=== PATIENT | female | born 1940 | race Caucasian/White ===

== ENCOUNTER 2017-06-21 15:43 | Observation (INO) | payer MEDICARE, OTHER ==
[~2017-06-21] VITALS: Ht 167.6 cm; Wt 72.0 kg
[~2017-06-21 15:43] MED LIST: CARB100C17 PO; CARV12.52 PO; COZA50TA PO; HYDRA25 PO; LEVO.025 PO; MECL25 PO; PHEN100 PO; PRAV40TA PO; TOLT4 PO; VITA400C70 PO
[2017-06-21] MEDS ORDERED: GADODIAMIDE PF 287 MG/ML 20 ML VIAL (for RAD MRI) IVCONTRAST ONE (15:44)
[2017-06-21 15:45] VITALS: BP 245/119; PULSE 73; RESP 16; TEMP 98; O2SAT 99
--- NOTE | 2017-06-21 16:47 | PD ---
HPI Chief Complaint: Neuro Symptoms/ Deficits Time Seen by Provider: 16:20 Travel History International Travel<30 days: No Contact w/Intl Traveler<30days: No Traveled to known affect area: No History of Present Illness HPI 77 years old female complains of unsteady gait. Patient states that the symptoms started 3 days ago. Patient states that the symptoms got worse last night and even worse this morning. Patient states that she had nausea this morning with the unsteady gait. Patient denies any headache. Patient denies any visual change. Patient denies any chest pain or shortness of breath. Patient denies abdominal pain. Patient denies any focal weakness or numbness of extremity. Patient denies any recent injury. Patient has been eating well. Patient is on medication for hypertension and hyperlipidemia. Patient is unsure why she is on the medications. Patient has history hypothyroidism. Patient also has history of trigeminal neuralgia and taking carbamazepine and phenytoin. Patient was seen by personal physician today and referred the ED for evaluation. PFSH Past Medical History Arthritis: Yes Anxiety: No Depression: No Cancer: No Cardiovascular Problems: Yes (HTN) High Cholesterol: Yes Diabetes: No Diminished Hearing: No Genitourinary: No Hypertension: Yes Implanted Vascular Access Dvce: Yes Musculoskeletal: Yes Neurologic: Yes (trigeminal neuralgia) Psychiatric: No Reproductive: No Respiratory: No Immunizations Current: Yes Thyroid Disease: Yes (graves disease -- hyperthyroidism ) ?: Not Menopausal: Yes Past Surgical History Abdominal Surgery: Yes (cyst removed from abd area) Body Medical Devices: mesh in cranium and and caps on teeth Genitourinary Surgery: Yes (BLADDER TACKING) Hysterectomy: Yes Neurologic Surgery: Yes (CRANIAL DECOMPRESSION FOR TRIGEMINAL NEURALGIA) Tonsillectomy: Yes Tympanostomy Tube: Yes Other Surgery: Yes (PINS PLACED May, RT FOOT 2ND,3RD DIGIT- hammer toes) Family History Family Hypercholesterolemia: Yes Social History Alcohol Use: No Tobacco Use: No Substance Use: No Allergies-Medications (Allergen,Severity, Reaction): Coded Allergies: amlodipine (Verified Allergy, Severe, 06/21/17) CAUSED NUMB ARM/HAND AND HTN X SEV DAYS. (SAID HAD AN OK) penicillin G (Verified Allergy, Mild, 06/21/17) Uncoded Allergies: GENERAL ANESTHESIA (Allergy, Mild, 04/04/15) . NARCOTCS (Adverse Reaction, Intermediate, severe nausea, 04/04/15) Reported Meds & Prescriptions Reported Meds & Active Scripts Active Reported Detrol LA (Tolterodine Tartrate) 4 Mg Cap 4 Mg PO DAILY Levothyroxine (Levothyroxine Sodium) 112 Mcg Tab 112 Mcg PO DAILY [carbatrol sr ] Pravastatin 40 Mg Tab 40 Mg PO DAILY Carvedilol 6.25 Mg Tab 6.25 Mg PO BID Losartan (Losartan Potassium) 50 Mg Tab 50 Mg PO DAILY Review of Systems General / Constitutional: No: Fever Eyes: No: Visual changes HENT: Positive: Lightheadedness, No: Headaches Cardiovascular: No: Chest Pain or Discomfort Respiratory: No: Shortness of Breath Gastrointestinal: No: Abdominal Pain Genitourinary: No: Dysuria Musculoskeletal: No: Pain Skin: No Rash Neurologic: No: Weakness Psychiatric: No: Depression Endocrine: No: Polydipsia Hematologic/Lymphatic: No: Easy Bruising Physical Exam Narrative GENERAL: Well-nourished, well-developed patient. SKIN: Focused skin assessment warm/dry. HEAD: Normocephalic. EYES: No scleral icterus. No injection or drainage. Pupils 2 mm equal reactive. NECK: Supple, trachea midline. No JVD or lymphadenopathy. CARDIOVASCULAR: Regular rate and rhythm without murmurs, gallops, or rubs. RESPIRATORY: Breath sounds equal bilaterally. No accessory muscle use. GASTROINTESTINAL: Abdomen soft, non-tender, nondistended. MUSCULOSKELETAL: No cyanosis, or edema. BACK: Nontender without obvious deformity. No CVA tenderness. Neurologic exam: Patient's awake and alert oriented 3. No obvious focal neurological deficit. Data Data Last Documented VS Vital Signs Date Time Temp Pulse Resp B/P (MAP) Pulse Ox O2 Delivery O2 Flow Rate FiO2 06/21/17 15:45 98.0 73 16 245/119 (161) 99 Orders Orders Electrocardiogram (06/21/17 16:31) Complete Blood Count With Diff (06/21/17 16:31) Comprehensive Metabolic Panel (06/21/17 16:31) Prothrombin Time / Inr (Pt) (06/21/17 16:31) Act Partial Throm Time (Ptt) (06/21/17 16:31) Urinalysis - C+S If Indicated (06/21/17 16:31) Thyroid Stimulating Hormone (06/21/17 16:31) Chest, Single Ap (06/21/17 16:31) Iv Access Insert/Monitor (06/21/17 16:31) Ecg Monitoring (06/21/17 16:31) Oximetry (06/21/17 16:31) Mri Brain W/O Contrast (06/21/17 16:31) Mra Brain W/O Contrast (Cow) (06/21/17 16:31) Mra Carotids W Contrast (06/21/17 16:31) Phenytoin (Dilantin) (06/21/17 16:43) Labs Laboratory Tests Test 06/21/17 16:30 White Blood Count 5.4 TH/MM3 Red Blood Count 4.30 MIL/MM3 Hemoglobin 13.0 GM/DL Hematocrit 38.2 % Mean Corpuscular Volume 88.9 FL Mean Corpuscular Hemoglobin 30.3 PG Mean Corpuscular Hemoglobin Concent 34.1 % Red Cell Distribution Width 13.5 % Platelet Count 240 TH/MM3 Mean Platelet Volume 6.4 FL Neutrophils (%) (Auto) 71.4 % Lymphocytes (%) (Auto) 16.4 % Monocytes (%) (Auto) 10.0 % Eosinophils (%) (Auto) 1.7 % Basophils (%) (Auto) 0.5 % Neutrophils # (Auto) 3.8 TH/MM3 Lymphocytes # (Auto) 0.9 TH/MM3 Monocytes # (Auto) 0.5 TH/MM3 Eosinophils # (Auto) 0.1 TH/MM3 Basophils # (Auto) 0.0 TH/MM3 CBC Comment DIFF FINAL Differential Comment Prothrombin Time 10.5 SEC Prothromb Time International Ratio 1.0 RATIO Activated Partial Thromboplast Time 26.1 SEC Blood Urea Nitrogen 10 MG/DL Creatinine 0.51 MG/DL Random Glucose 127 MG/DL Total Protein 6.7 GM/DL Albumin 3.6 GM/DL Calcium Level 8.8 MG/DL Alkaline Phosphatase 119 U/L Aspartate Amino Transf (AST/SGOT) 14 U/L Alanine Aminotransferase (ALT/SGPT) 20 U/L Total Bilirubin 0.3 MG/DL Sodium Level 123 MEQ/L Potassium Level 3.9 MEQ/L Chloride Level 89 MEQ/L Carbon Dioxide Level 25.9 MEQ/L Anion Gap 8 MEQ/L Estimat Glomerular Filtration Rate 117 ML/MIN Thyroid Stimulating Hormone 3rd Gen 2.250 uIU/ML MDM Medical Decision Making Medical Screen Exam Complete: Yes Emergency Medical Condition: Yes Interpretation(s) Last Impressions Chest X-Ray 06/21/17 1631 Signed Impressions: Service Date/Time: May 16:39 - CONCLUSION: 1. Mild cardiomegaly. Stable compared to prior dated 11/28/15. Jarrod Perez MD 1817 p.m. CBC within normal limit. Sodium 123. Differential Diagnosis Differential diagnosis including TIA, CVA, vertigo, electrolyte imbalance, medication side effect. Narrative Course 77 years old female with unsteady gait. Rudy Dutton MD Jun 21, 2017 16:47
[2017-06-21 16:55] LABS: AUTOMATED NEUTROPHIL # 3.8 TH/MM3 (1.8-7.7); BASOPHIL % 0.5 % (0.0-2.0); EOSINOPHIL # 0.1 TH/MM3 (0-0.4); EOSINOPHIL % 1.7 % (0.0-4.0); HEMATOCRIT 38.2 % (35.0-46.0); HEMO FLAGS DIFF FINAL; LYMPH % 16.4 % (9.0-44.0); LYMPHOCYTE # 0.9 TH/MM3 (1.0-4.8); MEAN CELL VOLUME 88.9 FL (80.0-100.0); MEAN CORPUSCULAR HEMOGLOBIN 30.3 PG (27.0-34.0); MEAN CORPUSCULAR HGB CONC 34.1 % (32.0-36.0); NEUT % 71.4 % (16.0-70.0); PLATELET COUNT 240 TH/MM3 (150-450); RED CELL DISTRIBUTION WIDTH 13.5 % (11.6-17.2); WHITE BLOOD COUNT 5.4 TH/MM3 (4.0-11.0)
--- NOTE | 2017-06-21 16:59 | RADRPT ---
EXAM DATE/TIME: 06/21/2017 16:39 [facility] COMPARISON: CHEST SINGLE AP, November 28, 2015, 9:46. SPINE CERVICAL LTD (AP&LAT), November 28, 2015, 9:49. INDICATIONS : Shortness of breath and weakness. MEDICAL HISTORY : Hypercholesterolemia. Hypertension SURGICAL HISTORY : None. ENCOUNTER: Initial ACUITY: 1 day PAIN SCORE: 0/10 LOCATION: Bilateral chest FINDINGS: The heart is mildly enlarged. The lungs are clear. Mediastinal contours within normal limits. The oss eous structures are intact. CONCLUSION: 1. Mild cardiomegaly. Stable compared to prior dated 11/28/15. Jarrod Perez MD on June 21, 2017 at 16:57 Board Certified Radiologist. This report was verified electronically.
[2017-06-21] MEDS ORDERED: DETR4CAP PO (17:05)
[2017-06-21] MEDS ORDERED: LEVO112T2 PO (17:05)
[2017-06-21] MEDS ORDERED: PRAV40TA2 PO (17:05)
[2017-06-21] MEDS ORDERED: CARBATROL (17:05)
[2017-06-21] MEDS ORDERED: CARV6.252 PO (17:05)
[2017-06-21] MEDS ORDERED: LOSA50TA PO (17:05)
[2017-06-21 17:12] LABS: APTT (PATIENT) 26.1 SEC (24.3-30.1); PROTHROMBIN TIME - PATIENT 10.5 SEC (9.8-11.6)
[2017-06-21 17:21] LABS: ALKALINE PHOSPHATASE 119 U/L (45-117); ALT (GPT) 20 U/L (10-53); ANION GAP 8 MEQ/L (5-15); AST (GOT) 14 U/L (15-37); BICARBONATE 25.9 MEQ/L (21.0-32.0); BLOOD UREA NITROGEN 10 MG/DL (7-18); CHLORIDE 89 MEQ/L (98-107); GLOMERULAR FILTRATION RATE 117 ML/MIN (>89); POTASSIUM 3.9 MEQ/L (3.5-5.1); TOTAL BILIRUBIN ADULT 0.3 MG/DL (0.2-1.0)
[2017-06-21 17:23] LABS: SODIUM (NA) 123 MEQ/L (136-145)
[2017-06-21] MEDS ORDERED: SODIUM CHLOR 0.9% 1000 ML INJ 1,000 ML IV SCH (18:30)
--- NOTE | 2017-06-21 19:05 | RADRPT ---
EXAM DATE/TIME: 06/21/2017 18:25 [facility] COMPARISON: MRI BRAIN W/O CONTRAST, June 21, 2017, 18:25. INDICATIONS : CVA. MEDICAL HISTORY : Hypertension. SURGICAL HISTORY : Hysterectomy. Cranial decompression and lumpectomy. ENCOUNTER: Initial ACUITY: 1 day PAIN SCORE: 0/10 LOCATION: Head. Please note a normal MRA of the brain does not entirely exclude the possibility of a small aneurysm, nor the possibility of distal intracranial vessel disease. TECHNIQUE: 3D time of flight MRA was performed. Source images, multiplanar STS MIP, and 3D volume MIP reconstru ctions were reviewed. FINDINGS: There is excellent visualization of the major intracranial arteries out to the second-order branch ve ssels. There is no evidence for aneurysm, vessel truncation or stenosis, and no evidence for vascula r malformation. CONCLUSION: Normal examination. Timothy Grady MD on June 21, 2017 at 19:02 Board Certified Radiologist. This report was verified electronically.
--- NOTE | 2017-06-21 19:06 | RADRPT ---
EXAM DATE/TIME: 06/21/2017 18:25 [facility] COMPARISON: No previous studies available for comparison. INDICATIONS : CVA. Dizziness. MEDICAL HISTORY : Hypertension. SURGICAL HISTORY : Hysterectomy. Lumpectomy and cranial decompression. ENCOUNTER: Initial ACUITY: 1 day PAIN SCORE: 0/10 LOCATION: Head. TECHNIQUE: Multiplanar, multisequence MRI of the brain was performed without contrast. FINDINGS: CEREBRUM: The ventricles are normal for age. No evidence of midline shift, mass lesion, hemorrhage or acute in farction. No extraaxial fluid collections are seen. The pituitary gland and suprasellar cistern are normal in configuration. WHITE MATTER: No significant signal abnormalities are seen in the white matter. POSTERIOR FOSSA: The cerebellum and brainstem are intact. The 4th ventricle is midline. The cerebellopontine angle is unremarkable. The cerebellar tonsils are normal in position. DIFFUSION IMAGING: No focal areas of restricted diffusion are seen. No evidence of acute infarction. EXTRACRANIAL: The visualized portions of the orbits and paranasal sinuses are unremarkable. CONCLUSION: Normal examination. Timothy Grady MD on June 21, 2017 at 19:04 Board Certified Radiologist. This report was verified electronically.
--- NOTE | 2017-06-21 19:10 | RADRPT ---
EXAM DATE/TIME: 06/21/2017 18:25 [facility] COMPARISON: No previous studies available for comparison. INDICATIONS : Stroke. Unsteady gait. CONTRAST: 20 cc Omniscan (gadodiamide) IV MEDICAL HISTORY : Hypertension. SURGICAL HISTORY : Hysterectomy. Lumpectomy and cranial decompression. ENCOUNTER: Initial ACUITY: 1 day PAIN SCORE: 0/10 LOCATION: Head. Percent stenosis is calculated using the diameter of the stenotic region over the diameter of the nor mal distal internal carotid artery. TECHNIQUE: Bolus infused MRA of the extracranial circulation was performed using a neurovascular coil. Post pro cessing was performed including rotating subvolume maximum intensity projections of each carotid mary ry, rotating full volume maximum intensity projections of both carotid arteries, sagittal and coronal sliding thin slab reformations of each carotid artery, and left oblique sliding thin slab reformatio n through the aortic arch to include the origin of the arch branch vessels. FINDINGS: AORTIC ARCH: There is a three vessel origin of the great vessels from the aorta. No evidence of ostial narrowing. RIGHT CAROTID: The common carotid artery is intact. The carotid bulb has a normal configuration without ulceration or narrowing. The internal carotid artery lumen is smooth without stenosis. The external carotid ar bobbi is intact. LEFT CAROTID: The common carotid artery is intact. The carotid bulb has a normal configuration without ulceration or narrowing. The internal carotid artery lumen is smooth without stenosis. The external carotid ar bobbi is intact. VERTEBRALS: The vertebral arteries have a symmetric diameter. No stenotic lesions are seen. CONCLUSION: Normal examination. Timothy Grady MD on June 21, 2017 at 19:07 Board Certified Radiologist. This report was verified electronically.
[2017-06-21 19:26] VITALS: BP 190/96; PULSE 73; RESP 19; O2SAT 98
[2017-06-21 19:55] LABS: BLOOD, URINE NEG (NEG); COMMENT (UR) CULT NOT INDICATED; CULTURE IF INDICATED CULT NOT INDICATED; GLUCOSE,URINE NEG (NEG); KETONE, URINE NEG (NEG); MUCUS URINE FEW /lpf (OCC); NITRITE,URINE NEG (NEG); URINE COLOR YELLOW (YELLW/STRAW)
--- NOTE | 2017-06-21 20:06 | PD ---
Physical Exam Date Seen by Provider: Jun 21, 2017 Time Seen by Provider: 19:53 Narrative 77-year-old female came to the emergency room with history of dizziness and broadbased gait. Patient was seen by the previous ER physician. Please refer to his history and physical for further details. The sign out to me was to follow-up on the MRI MRA and phenytoin level. The test results of back and the MRI of the brain, MRA of the brain and neck are within normal limits. Dilantin level is below the therapeutic range. Sodium is low at 123. I went to talk to the patient and her . Patient is awake and answering questions appropriately. She told me that she has a long-standing history of trigeminal neurology and is on very high dose of carbamazepine for that. Side effect of the carbamazepine is hyponatremia and she has been battling with it for a while. Her neurologist is from [place] and his Dr. Castellano. However these ataxia/broad-based gait symptoms are something new that she had not had in the past. Hence her visit to the emergency room. Given this I think it's important that patient gets admitted so that she can be seen by our neurologist. I put a call out for our neurology on-call. Awaiting for him to call back as well as the admitting physician. Patient is aware of this plan and is okay with it. Data Data Last Documented VS Orders Orders Electrocardiogram (06/21/17 16:31) Complete Blood Count With Diff (06/21/17 16:31) Comprehensive Metabolic Panel (06/21/17 16:31) Prothrombin Time / Inr (Pt) (06/21/17 16:31) Act Partial Throm Time (Ptt) (06/21/17 16:31) Urinalysis - C+S If Indicated (06/21/17 16:31) Thyroid Stimulating Hormone (06/21/17 16:31) Chest, Single Ap (06/21/17 16:31) Iv Access Insert/Monitor (06/21/17 16:31) Ecg Monitoring (06/21/17 16:31) Oximetry (06/21/17 16:31) Mri Brain W/O Contrast (06/21/17 16:31) Mra Brain W/O Contrast (Cow) (06/21/17 16:31) Mra Carotids W Contrast (06/21/17 16:31) Phenytoin (Dilantin) (06/21/17 16:43) Sodium Chlor 0.9% 1000 Ml Inj (Ns 1000 M (06/21/17 18:30) Gadodiamide Pf Inj (Omniscan Pf Inj) (06/21/17 15:44) Carbamazepine (Tegretol) (06/21/17 20:09) Admit Order (Ed Use Only) (06/21/17 20:24) Labs Laboratory Tests Test 06/21/17 16:30 06/21/17 19:30 White Blood Count 5.4 TH/MM3 Red Blood Count 4.30 MIL/MM3 Hemoglobin 13.0 GM/DL Hematocrit 38.2 % Mean Corpuscular Volume 88.9 FL Mean Corpuscular Hemoglobin 30.3 PG Mean Corpuscular Hemoglobin Concent 34.1 % Red Cell Distribution Width 13.5 % Platelet Count 240 TH/MM3 Mean Platelet Volume 6.4 FL Neutrophils (%) (Auto) 71.4 % Lymphocytes (%) (Auto) 16.4 % Monocytes (%) (Auto) 10.0 % Eosinophils (%) (Auto) 1.7 % Basophils (%) (Auto) 0.5 % Neutrophils # (Auto) 3.8 TH/MM3 Lymphocytes # (Auto) 0.9 TH/MM3 Monocytes # (Auto) 0.5 TH/MM3 Eosinophils # (Auto) 0.1 TH/MM3 Basophils # (Auto) 0.0 TH/MM3 CBC Comment DIFF FINAL Differential Comment Prothrombin Time 10.5 SEC Prothromb Time International Ratio 1.0 RATIO Activated Partial Thromboplast Time 26.1 SEC Blood Urea Nitrogen 10 MG/DL Creatinine 0.51 MG/DL Random Glucose 127 MG/DL Total Protein 6.7 GM/DL Albumin 3.6 GM/DL Calcium Level 8.8 MG/DL Alkaline Phosphatase 119 U/L Aspartate Amino Transf (AST/SGOT) 14 U/L Alanine Aminotransferase (ALT/SGPT) 20 U/L Total Bilirubin 0.3 MG/DL Sodium Level 123 MEQ/L Potassium Level 3.9 MEQ/L Chloride Level 89 MEQ/L Carbon Dioxide Level 25.9 MEQ/L Anion Gap 8 MEQ/L Estimat Glomerular Filtration Rate 117 ML/MIN Thyroid Stimulating Hormone 3rd Gen 2.250 uIU/ML Phenytoin (Dilantin) Level 3.6 MCG/ML Carbamazepine (Tegretol) Level 13.6 MCG/ML Urine Color YELLOW Urine Turbidity CLOUDY Urine pH 7.0 Urine Specific [place] 1.020 Urine Protein NEG mg/dL Urine Glucose (UA) NEG mg/dL Urine Ketones NEG mg/dL Urine Occult Blood NEG Urine Nitrite NEG Urine Bilirubin NEG Urine Urobilinogen LESS THAN 2.0 MG/DL Urine Leukocyte Esterase SMALL Urine RBC 3 /hpf Urine WBC 1 /hpf Urine Amorphous Sediment RARE Urine Mucus FEW /lpf Microscopic Urinalysis Comment CULT NOT INDICATED MDM Supervised Visit with [facility]: No Interpretation(s) Twelve-lead EKG was reviewed by me. Normal sinus rhythm, normal axis, nonspecific ST-T wave changes, first-degree AV block. Heart rate of 70 bpm. Narrative Course 8:25 PM I discussed the case with Dr. Leong. He was concerned about Tegretol toxicity. The Tegretol level was never ordered which has been ordered at this point. As per him that could certainly explain the symptoms and the hyponatremia. He agreed that patient should be admitted. If the level is high her carbamazepine needs to be held before the level comes back to words normal. I've let the hospitalist know about this. Physician Communication Physician Communication Dr. Leong Diagnosis Primary Impression: Ataxia Additional Impressions: Broad-based gait Hyponatremia Admitting Information Admitting Physician Requests: Observation Scripts Carvedilol (Carvedilol) 6.25 Mg Tab 6.26 MG PO BID for Blood Pressure Management, #60 TAB 0 Refills Prov: Lulú Mercado MD 06/23/17 Carbamazepine ER 12 HR (Carbatrol ER 12 HR) 200 Mg Cap 200 MG PO Q12HR for trigeminal neuralgia, #60 CAP 0 Refills Prov: Lulú Mercado MD 06/22/17 Nydia Moore MD Jun 21, 2017 20:06
[2017-06-21] MEDS ORDERED: DILA100C PO (20:18)
[2017-06-21] MEDS ORDERED: ONDANSETRON HCL 4 MG/2 ML VIAL IVP PRN (20:30)
[2017-06-21] MEDS ORDERED: BISACODYL 10 MG SUPP RECTAL PRN (20:30)
[2017-06-21] MEDS ORDERED: MAGNESIUM HYDROXIDE SUSP 30 ML CUP PO PRN (20:30)
[2017-06-21] MEDS ORDERED: LACTULOSE SYRUP 20 GM/30 ML CUP PO PRN (20:30)
[2017-06-21] MEDS ORDERED: SODIUM CHLORIDE 0.9% FLUSH 10 ML FLUSH IV FLUSH PRN (20:30)
[2017-06-21] MEDS ORDERED: SENNOSIDES 8.6 MG TAB PO PRN (20:30)
--- NOTE | 2017-06-21 20:33 | HHI.HP ---
[facility] Sherron Moreno MD Admission Diagnosis broadbase gait, hyponatremia Diagnoses: (1) Ataxia Diagnosis: Principal (2) Carbamazepine toxicity Diagnosis: Principal (3) Hyponatremia Diagnosis: Principal (4) Trigeminal neuralgia Diagnosis: Principal (5) HTN (hypertension) Diagnosis: Principal Travel History International Travel<30 Days: No Contact w/Intl Traveler <30 Da: No Traveled to Known Affected Are: No History of Present Illness This is a 77-year-old female with a PMH of HTN, Hyperlipidemia and Trigeminal Neuralgia who presented to the ER with complaints of unsteady gait in addition to dizziness x2-3 days. States symptoms have been getting progressively worse. Denies fever, chills or sick contacts. On Carbamazepine and Phenytoin for Trigeminal Neuralgia, no recent changes to medications. Was seen by PCP and referred to ER. On arrival, BP 245/119, HR 73, O2 sat 99% on RA, Afebrile. CBC unremarkable. Na 123. INR 1.0. U/a negative. Phenytoin 3.6. Carbamazepine 13.6. MRI Brain normal. Head/Neck MRA negative. CXR w/ mild cardiomegaly, stable. Dr. Leong consulted by ER physician, symptoms likely related to Carbamazepine toxicity, recommended holding medication for now. Review of Systems Except as stated in HPI: all other systems reviewed are Neg ROS: 14 point review of systems otherwise negative. Past Family Social History Past Medical History PMH: HTN, Hyperlipidemia and Trigeminal Neuralgia Past Surgical History PAST SURGICAL HISTORY: Bladder Tacking, Cranial Decompression, Tonsillectomy, Hysterectomy Allergies: Coded Allergies: amlodipine (Verified Allergy, Severe, 06/21/17) CAUSED NUMB ARM/HAND AND HTN X SEV DAYS. (SAID HAD AN LA) penicillin G (Verified Allergy, Mild, 06/21/17) Uncoded Allergies: GENERAL ANESTHESIA (Allergy, Mild, 04/04/15) . NARCOTCS (Adverse Reaction, Intermediate, severe nausea, 04/04/15) Family History PAST FAMILY HISTORY: Reviewed. No h/o DM or CAD Social History PAST SOCIAL HISTORY: Negative for alcohol, tobacco or drugs. Physical Exam Vital Signs Vital Signs Date Time Temp Pulse Resp B/P (MAP) Pulse Ox O2 Delivery O2 Flow Rate FiO2 06/21/17 19:26 73 19 190/96 (127) 98 Room Air 06/21/17 15:45 98.0 73 16 245/119 (161) 99 Physical Exam PE: GENERAL: Elderly white female in no acute distress. HEENT: PERRLA, EOMI. No scleral icterus or conjunctival pallor. No lid lag or facial droop. CARDIOVASCULAR: Regular rate and rhythm. No obvious murmurs to auscultation. No chest tenderness to palpation. RESPIRATORY: No obvious rhonchi or wheezing. Clear to auscultation. Breath sounds equal bilaterally. GASTROINTESTINAL: Abdomen soft, non-tender, nondistended. BS normal. MUSCULOSKELETAL: Extremities without clubbing, cyanosis, or edema. No obvious deformities. NEUROLOGICAL: Awake, alert and oriented x4. No focal neurologic deficits. Moving both upper and lower extremities spontaneously. Laboratory Laboratory Tests Test 06/21/17 16:30 06/21/17 19:30 White Blood Count 5.4 Red Blood Count 4.30 Hemoglobin 13.0 Hematocrit 38.2 Mean Corpuscular Volume 88.9 Mean Corpuscular Hemoglobin 30.3 Mean Corpuscular Hemoglobin Concent 34.1 Red Cell Distribution Width 13.5 Platelet Count 240 Mean Platelet Volume 6.4 Neutrophils (%) (Auto) 71.4 Lymphocytes (%) (Auto) 16.4 Monocytes (%) (Auto) 10.0 Eosinophils (%) (Auto) 1.7 Basophils (%) (Auto) 0.5 Neutrophils # (Auto) 3.8 Lymphocytes # (Auto) 0.9 Monocytes # (Auto) 0.5 Eosinophils # (Auto) 0.1 Basophils # (Auto) 0.0 CBC Comment DIFF FINAL Differential Comment Prothrombin Time 10.5 Prothromb Time International Ratio 1.0 Activated Partial Thromboplast Time 26.1 Blood Urea Nitrogen 10 Creatinine 0.51 Random Glucose 127 Total Protein 6.7 Albumin 3.6 Calcium Level 8.8 Alkaline Phosphatase 119 Aspartate Amino Transf (AST/SGOT) 14 Alanine Aminotransferase (ALT/SGPT) 20 Total Bilirubin 0.3 Sodium Level 123 Potassium Level 3.9 Chloride Level 89 Carbon Dioxide Level 25.9 Anion Gap 8 Estimat Glomerular Filtration Rate 117 Thyroid Stimulating Hormone 3rd Gen 2.250 Phenytoin (Dilantin) Level 3.6 Urine Color YELLOW Urine Turbidity CLOUDY Urine pH 7.0 Urine Specific [place] 1.020 Urine Protein NEG Urine Glucose (UA) NEG Urine Ketones NEG Urine Occult Blood NEG Urine Nitrite NEG Urine Bilirubin NEG Urine Urobilinogen LESS THAN 2.0 Urine Leukocyte Esterase SMALL Urine RBC 3 Urine WBC 1 Urine Amorphous Sediment RARE Urine Mucus FEW Microscopic Urinalysis Comment CULT NOT INDICATED Result Diagram: 06/21/17 1630 06/21/17 1630 Caprini VTE Risk Assessment Caprini VTE Risk Assessment: No/Low Risk (score <= 1) Caprini Risk Assessment Model Point Value = 1 Point Value = 2 Point Value = 3 Point Value = 5 Age 41-60 Minor surgery BMI > 25 kg/m2 Swollen legs Varicose veins or History of unexplained or recurrent spontaneous Oral contraceptives or hormone replacement Sepsis (< 1 month) Serious lung disease, including pneumonia (< 1 month) Abnormal pulmonary function Acute myocardial infarction Congestive heart failure (< 1 month) History of inflammatory bowel disease Medical patient at bed rest Age 61-74 Arthroscopic surgery Major open surgery (> 45 min) Laparoscopic surgery (> 45 min) Malignancy Confined to bed (> 72 hours) Immobilizing plaster cast Central venous access Age >= 75 History of VTE Family history of VTE Factor V Leiden Prothrombin [id number] Lupus anticoagulant Anticardiolipin antibodies Elevated serum homocysteine Heparin-induced thrombocytopenia Other congenital or acquired thrombophilia Stroke (< 1 month) Elective arthroplasty Hip, pelvis, or leg fracture Acute spinal cord injury (< 1 month) Prophylaxis Regimen Total Risk Factor Score Risk Level Prophylaxis Regimen 0-1 Low Early ambulation 2 Moderate Order ONE of the following: *Sequential Compression Device (SCD) *Heparin 5000 units SQ BID 3-4 Higher Order ONE of the following medications: *Heparin 5000 units SQ TID *Enoxaparin/Lovenox 40 mg SQ daily (WT < 150 kg, CrCl > 30 mL/min) *Enoxaparin/Lovenox 30 mg SQ daily (WT < 150 kg, CrCl > 10-29 mL/min) *Enoxaparin/Lovenox 30 mg SQ BID (WT < 150 kg, CrCl > 30 mL/min) AND/OR *Sequential Compression Device (SCD) 5 or more Highest Order ONE of the following medications: *Heparin 5000 units SQ TID (Preferred with Epidurals) *Enoxaparin/Lovenox 40 mg SQ daily (WT < 150 kg, CrCl > 30 mL/min) *Enoxaparin/Lovenox 30 mg SQ daily (WT < 150 kg, CrCl > 10-29 mL/min) *Enoxaparin/Lovenox 30 mg SQ BID (WT < 150 kg, CrCl > 30 mL/min) AND *Sequential Compression Device (SCD) Assessment and Plan Problem List: (1) Ataxia ICD Code: R27.0 - Ataxia, unspecified Status: Acute (2) Hyponatremia ICD Code: E87.1 - Hypo-osmolality and hyponatremia Status: Resolved (3) Carbamazepine toxicity ICD Code: T42.1X1A - Poisoning by iminostilbenes, accidental (unintentional), initial encounter (4) HTN (hypertension) ICD Code: I10 - Essential (primary) hypertension (5) Trigeminal neuralgia ICD Code: G50.0 - Trigeminal neuralgia Status: Chronic Assessment and Plan A/P: 1. Ataxia: acute onset of gait instability/ataxia x2-3 days, associated intermittent dizziness. Likely secondary to Carbamazepine toxicity. MRI Brain , MRA Head/Neck w/ no acute findings, images reviewed by me. Dr. Leong consulted by ER physician, will evaluate in am, recommended holding Carbamazepine for now. 2. Hyponatremia: Acute on Chronic. Na 123. Likely secondary to Carbamazepine , will hold, monitor Na, repeat labs in am. 3. Carbamazepine Toxicity: Elevated Carbamazepine 13.6. Will hold, repeat Carbamazepine level in am. 4. Trigeminal Neuralgia: w/ chronic pain, pt reluctant to discontinue or decrease dose of Carbamazepine due to good results. Will hold for now as above secondary to toxicity. Resume home Dilantin. Analgesics as needed. 5. HTN: Uncontrolled. BP 245/119, HR 73 on arrival, currently BP 160's. Resume home medications, monitor BP. 6. DVT Prophylaxis: SCD/Teds. 7. Social work for d/c planning as needed. 8. Case discussed w/ ER physician at length. Cherrie Bailey MD Jun 21, 2017 20:33
[2017-06-21] MEDS: SODIUM CHLORIDE 0.9% FLUSH 10 ML FLUSH IV FLUSH SCH (21:00)
[2017-06-21 21:08] VITALS: BP 168/80; PULSE 71; RESP 18; O2SAT 98
[2017-06-21] MEDS: SODIUM CHLOR 0.9% 1000 ML INJ 1,000 ML IV SCH (21:16)
[2017-06-21] MEDS: CARVEDILOL 6.25 MG TAB PO SCH (21:18)
[2017-06-21] MEDS: PHENYTOIN SODIUM 100 MG CAP PO SCH (21:18)
[2017-06-21] MEDS ORDERED: cloNIDine HCL 0.1 MG TAB PO ONE (22:45)
[2017-06-21 22:49] VITALS: BP 206/89; PULSE 84; RESP 18; TEMP 97.6; O2SAT 99
--- NOTE | 2017-06-21 23:11 | EKG ---
Date Performed: 06/21/2017 Time Performed: 17:02:36 PTAGE: 77 years EKG: Sinus rhythm WITH FIRST DEGREE AV BLOCK POSSIBLE RIGHT VENTRICULAR CONDUCTION DELAY ABNORMAL ECG PREVIOUS TRACING : 12/18/2015 10.22 Compared to prior tracing no significant change DOCTOR: Jake Rivera Interpretating Date/Time 06/21/2017 23:11:14
[2017-06-21] MEDS: DOCUSATE SODIUM 50 MG/SENNA 8.6 MG TAB PO SCH (23:32)
[2017-06-21 23:33] VITALS: BP 209/93; RESP 16; O2SAT 99
[2017-06-22] VITALS (12 sets, daily range): BP systolic 124–198; BP diastolic 62–98; PULSE 62–75; RESP 16–24; TEMP 97.5–98.2; O2SAT 96–100
[2017-06-22] MEDS: ENALAPRILAT 1.25 MG/ML VIAL IV PUSH PRN ×2 (02:15→19:24)
[2017-06-22] MEDS ORDERED: IBUPROFEN 400 MG TAB PO ONE (05:15)
[2017-06-22] MEDS: LEVOTHYROXINE SODIUM 112 MCG TAB PO SCH (05:24)
[2017-06-22] MEDS ORDERED: ACETAMINOPHEN 500 MG CPLT PO ONE (05:30)
[2017-06-22] MEDS: SODIUM CHLOR 0.9% 1000 ML INJ 1,000 ML IV SCH ×2 (05:41→22:52)
[2017-06-22 07:26] LABS: AUTOMATED NEUTROPHIL # 3.5 TH/MM3 (1.8-7.7); BASOPHIL % 0.5 % (0.0-2.0); EOSINOPHIL # 0.1 TH/MM3 (0-0.4); EOSINOPHIL % 1.7 % (0.0-4.0); HEMATOCRIT 35.8 % (35.0-46.0); HEMO FLAGS DIFF FINAL; LYMPH % 15.6 % (9.0-44.0); LYMPHOCYTE # 0.8 TH/MM3 (1.0-4.8); MEAN CORPUSCULAR HEMOGLOBIN 30.5 PG (27.0-34.0); MEAN CORPUSCULAR HGB CONC 34.3 % (32.0-36.0); MONO % 13.1 % (0.0-8.0); NEUT % 69.1 % (16.0-70.0); PLATELET COUNT 223 TH/MM3 (150-450); RED BLOOD COUNT 4.03 MIL/MM3 (4.00-5.30); RED CELL DISTRIBUTION WIDTH 13.5 % (11.6-17.2); WHITE BLOOD COUNT 5.1 TH/MM3 (4.0-11.0)
[2017-06-22] MEDS ORDERED: VITA1000 PO (07:48)
[2017-06-22 07:54] LABS: ALKALINE PHOSPHATASE 106 U/L (45-117); ALT (GPT) 19 U/L (10-53); ANION GAP 7 MEQ/L (5-15); AST (GOT) 12 U/L (15-37); BICARBONATE 26.8 MEQ/L (21.0-32.0); BLOOD UREA NITROGEN 9 MG/DL (7-18); CHLORIDE 94 MEQ/L (98-107); GLOMERULAR FILTRATION RATE 155 ML/MIN (>89); SODIUM (NA) 128 MEQ/L (136-145); TOTAL BILIRUBIN ADULT 0.3 MG/DL (0.2-1.0)
[2017-06-22] MEDS: SODIUM CHLORIDE 0.9% FLUSH 10 ML FLUSH IV FLUSH SCH ×2 (08:36→21:00)
[2017-06-22] MEDS: LOSARTAN 50 MG TAB PO SCH (08:37)
[2017-06-22] MEDS: DOCUSATE SODIUM 50 MG/SENNA 8.6 MG TAB PO SCH ×2 (08:37→21:00)
[2017-06-22] MEDS: PRAVASTATIN SOD 40 MG TAB PO SCH (08:37)
[2017-06-22] MEDS: ACETAMINOPHEN 325 MG TAB PO PRN ×2 (08:43→14:03)
[2017-06-22] MEDS: TOLTERODINE TARTRATE 4 MG CAP LA PO SCH (08:43)
[2017-06-22] MEDS: CARVEDILOL 6.25 MG TAB PO SCH ×2 (09:00→21:00)
--- NOTE | 2017-06-22 13:07 | MB ---
cc: KWESI MARTINEZ M.D. DATE OF CONSULTATION: 06/22/2017 DATE OF : 1940 REASON FOR CONSULTATION Tegretol toxicity, history of trigeminal neuralgia. HISTORY OF PRESENT ILLNESS This is a 77-year-old woman with a longstanding history of trigeminal neuralgia bilaterally, had surgery many years ago on the right but had residual left trigeminal neuralgia. Follows with Dr. Castellano. She is on Carbatrol name brand, varies doses, and Dilantin. She came in with some toxicity to Tegretol and hyponatremia, feeling better now, however, some residual pain starting now in the left V2/3 territory. She does not feel dizzy or light-headed. She had an MRI of the brain and [place] and carotids that were unremarkable. PAST MEDICAL HISTORY As stated. ALLERGIES SHE IS ALLERGIC TO AMLODIPINE AND PENICILLIN, AND HAS SEVERE NAUSEA AND VOMITING WITH ANY TYPE OF NARCOTIC. FAMILY HISTORY Noncontributory. SOCIAL HISTORY She does not smoke, drink, or use illicit drugs. PHYSICAL EXAMINATION VITAL SIGNS: Temperature 98, pulse 62, respiratory rate 18, blood pressure 139/69. NECK: Supple. HEART: Regular rate. NEUROLOGIC: She is awake, alert, oriented and fluent. Pupils are reactive. Face is symmetrical. Tongue is midline. Motor-lozano she has no drift or leg lag. On pbympo-ghxo-leavch there is no dysmetria. DTRs are 1+. Sensory is normal. Gait is withheld, defer to PT. LABORATORY CBC is unremarkable. Sodium yesterday was 123, this morning 128. Toxicology: Dilantin level is 3.6. Her Tegretol level yesterday was 13.6 and today is 9.7 IMPRESSION Tegretol toxicity with hyponatremia, likely due to Carbatrol with a known history of trigeminal neuralgia. PLAN/RECOMMENDATIONS Since her sodium level has improved I would recommend just going to Carbatrol 200 mg b.i.d. Obtain a follow-up sodium level tomorrow morning. If she is at least 130 she be discharged home with follow-up with Dr. Castellano. She is not willing at this point to try any other medicines, states that she has been on gabapentin and baclofen. Another option would be just slightly increasing her Dilantin. She is on 200 at night, so would have to go to 300, 200 at night and 100 in the morning; however, I think I will defer to Dr. Castellano since he has been managing her for quite a number of years. I did discuss with the patient medications, medications are locked up. Because the hospital does not have brand only they can certainly give her the 200 mg b.i.d. from her supply. I have no contraindication. Discharge planning likely tomorrow morning. MD FLOYD Finch/GLENN /12:05 PM /12:42 PM
--- NOTE | 2017-06-22 15:07 | HHI.PR ---
Subjective Remarks Patient says she has some pain in her jaw. Says no change in vision or motor deficit. No dizziness. Did not move much and can't say if there is a difference. Says only carbamazepine works for er and she had tried all meds and surgical approach, she had a recent eval with Dr Thayer neurosurgery and no other new surgical treatment available at this time. patient denies fever or chills. No n/v/d/c. Objective Vitals Vital Signs Date Time Temp Pulse Resp B/P (MAP) Pulse Ox O2 Delivery O2 Flow Rate FiO2 06/22/17 12:01 97.5 67 24 166/74 (104) 98 06/22/17 10:52 62 06/22/17 10:31 18 06/22/17 08:32 98.0 63 22 139/69 (92) 98 06/22/17 04:36 97.8 65 16 124/69 (87) 100 06/22/17 04:33 66 16 138/62 (87) 98 06/22/17 04:08 75 06/22/17 02:06 70 16 172/80 (110) 96 06/22/17 00:32 97.7 69 16 182/98 (126) 96 06/22/17 00:06 65 06/21/17 23:33 16 209/93 (131) 99 06/21/17 22:49 97.6 84 18 206/89 (128) 99 06/21/17 21:39 06/21/17 21:08 71 18 168/80 (109) 98 Room Air 06/21/17 19:26 73 19 190/96 (127) 98 Room Air 06/21/17 15:45 98.0 73 16 245/119 (161) 99 I/O 06/21/17 06/21/17 06/21/17 06/22/17 06/22/17 06/22/17 07:00 15:00 23:00 07:00 15:00 23:00 Intake Total 0 ml Output Total 300 ml 400 ml Balance -300 ml -400 ml Intake IV Total 0 ml Output Urine Total 300 ml 400 ml # Voids 1 2 # Bowel Movements 1 Result Diagram: 06/22/17 0635 06/22/17 0635 Imaging Last Impressions Neck Magnetic Resonance Angiography 06/21/17 1631 Signed Impressions: Service Date/Time: May 18:25 - CONCLUSION: Normal examination. Timothy Grady MD Head Magnetic Resonance Angiography 06/21/17 1631 Signed Impressions: Service Date/Time: May 18:25 - CONCLUSION: Normal examination. Timothy Grady MD Chest X-Ray 06/21/17 1631 Signed Impressions: Service Date/Time: May 16:39 - CONCLUSION: 1. Mild cardiomegaly. Stable compared to prior dated 11/28/15. Jarrod Perez MD Brain MRI 06/21/17 1631 Signed Impressions: Service Date/Time: May 18:25 - CONCLUSION: Normal examination. Timothy Grady MD Objective Remarks GENERAL: Elderly white female in no acute distress. HEENT: PERRLA, EOMI. No scleral icterus or conjunctival pallor. No lid lag or facial droop. Mild pain over the left jaw on palpation. CARDIOVASCULAR: Regular rate and rhythm. No obvious murmurs to auscultation. No chest tenderness to palpation. RESPIRATORY: No obvious rhonchi or wheezing. Clear to auscultation. Breath sounds equal bilaterally. GASTROINTESTINAL: Abdomen soft, non-tender, nondistended. BS normal. MUSCULOSKELETAL: Extremities without clubbing, cyanosis, or edema. No obvious deformities. NEUROLOGICAL: Awake, alert and oriented x4. No focal neurologic deficits. Moving both upper and lower extremities spontaneously. A/P Problem List: (1) Ataxia ICD Code: R27.0 - Ataxia, unspecified Status: Acute (2) Hyponatremia ICD Code: E87.1 - Hypo-osmolality and hyponatremia Status: Resolved (3) Carbamazepine toxicity ICD Code: T42.1X1A - Poisoning by iminostilbenes, accidental (unintentional), initial encounter (4) HTN (hypertension) ICD Code: I10 - Essential (primary) hypertension (5) Trigeminal neuralgia ICD Code: G50.0 - Trigeminal neuralgia Status: Chronic Assessment and Plan Ataxia: acute onset of gait instability/ataxia x2-3 days, associated intermittent dizziness. Likely secondary to Carbamazepine toxicity. MRI Brain , MRA Head/Neck w/ no acute findings, images reviewed by me. Dr. Leong consulted by ER physician Seen by Dr Fulop appreciate recommendations. Carbamazepine was held. Discussed with Dr Diggs neurology recommends resterting carbamazepine, to recheck Na level tomorrow AM and id Na > 130 patient can be discharged on Carbatrol 200 mg BID Hyponatremia: Acute on Chronic. Na 123on admission. Improving. Likely secondary to Carbamazepine. Discussed with Dr Diggs neurology recommends resterting carbamazepine, to recheck Na level tomorrow AM and id Na > 130 patient can be discharged on Carbatrol 200 mg BID Carbamazepine Toxicity: Elevated Carbamazepine 13.6. Will hold, repeat Carbamazepine level in am. Trigeminal Neuralgia: w/ chronic pain, pt reluctant to discontinue or decrease dose of Carbamazepine due to good results. Will hold for now as above secondary to toxicity. Resume home Dilantin. Analgesics as needed. HTN: Uncontrolled. BP 245/119, HR 73 on arrival, currently BP 160's. Resume home medications, monitor BP. DVT Prophylaxis: SCD/Teds. Social work for d/c planning as needed. Discussed with the patient, nurse, Dr Diggs neurology. DC plan Likely DC tomorrow if Na level > 130, to f./u as Op with PCP and consultants. Lulú Mercado MD Jun 22, 2017 15:07
[2017-06-22] MEDS ORDERED: CARB200C2 PO (15:09)
[2017-06-22] MEDS: carBAMazepine 200 MG TAB PO SCH (21:00)
[2017-06-22] MEDS: PHENYTOIN SODIUM 100 MG CAP PO SCH (21:00)
[2017-06-23] VITALS (8 sets, daily range): BP systolic 148–185; BP diastolic 80–89; PULSE 64–79; RESP 18–20; TEMP 98–98.7; O2SAT 97–98
[2017-06-23] MEDS: LEVOTHYROXINE SODIUM 112 MCG TAB PO SCH (05:19)
[2017-06-23] MEDS: ACETAMINOPHEN 325 MG TAB PO PRN (05:20)
[2017-06-23] MEDS ORDERED: hydrALAZINE HCL 10 MG TAB PO PRN (08:00)
[2017-06-23] MEDS: PRAVASTATIN SOD 40 MG TAB PO SCH (08:08)
[2017-06-23] MEDS: LOSARTAN 50 MG TAB PO SCH (08:08)
[2017-06-23] MEDS: DOCUSATE SODIUM 50 MG/SENNA 8.6 MG TAB PO SCH (08:08)
[2017-06-23] MEDS: TOLTERODINE TARTRATE 4 MG CAP LA PO SCH (08:08)
[2017-06-23] MEDS: CARVEDILOL 6.25 MG TAB PO SCH (08:08)
[2017-06-23] MEDS: SODIUM CHLORIDE 0.9% FLUSH 10 ML FLUSH IV FLUSH SCH (08:09)
[2017-06-23] MEDS: SODIUM CHLOR 0.9% 1000 ML INJ 1,000 ML IV SCH (08:09)
--- NOTE | 2017-06-23 08:13 | HHI.DS ---
Discharge Summary Admission Date Jun 21, 2017 at 20:25 Discharge Date: Jun 23, 2017 Admitting Diagnosis broadbase gait, hyponatremia (1) Ataxia ICD Code: R27.0 - Ataxia, unspecified Status: Acute (2) Hyponatremia ICD Code: E87.1 - Hypo-osmolality and hyponatremia Status: Resolved (3) Carbamazepine toxicity ICD Code: T42.1X1A - Poisoning by iminostilbenes, accidental (unintentional), initial encounter (4) HTN (hypertension) ICD Code: I10 - Essential (primary) hypertension (5) Trigeminal neuralgia ICD Code: G50.0 - Trigeminal neuralgia Status: Chronic (6) Hypothyroidism ICD Code: E03.9 - Hypothyroidism, unspecified Status: Resolved (7) Disequilibrium ICD Code: R42 - Dizziness and giddiness Status: Acute (8) Hypertensive urgency ICD Code: I10 - Essential (primary) hypertension Status: Resolved (9) Broad-based gait ICD Code: R26.0 - Ataxic gait Status: Acute Procedures none Brief History - From Admission This is a 77-year-old female with a PMH of HTN, Hyperlipidemia and Trigeminal Neuralgia who presented to the ER with complaints of unsteady gait in addition to dizziness x2-3 days. States symptoms have been getting progressively worse. Denies fever, chills or sick contacts. On Carbamazepine and Phenytoin for Trigeminal Neuralgia, no recent changes to medications. Was seen by PCP and referred to ER. On arrival, BP 245/119, HR 73, O2 sat 99% on RA, Afebrile. CBC unremarkable. Na 123. INR 1.0. U/a negative. Phenytoin 3.6. Carbamazepine 13.6. MRI Brain normal. Head/Neck MRA negative. CXR w/ mild cardiomegaly, stable. Dr. Leong consulted by ER physician, symptoms likely related to Carbamazepine toxicity, recommended holding medication for now. CBC/BMP: 06/22/17 0635 06/22/17 0635 Significant Findings Laboratory Tests Test 06/21/17 16:30 06/21/17 19:30 06/22/17 06:35 Mean Platelet Volume 6.4 FL (7.0-11.0) 6.5 FL (7.0-11.0) Neutrophils (%) (Auto) 71.4 % (16.0-70.0) Monocytes (%) (Auto) 10.0 % (0.0-8.0) 13.1 % (0.0-8.0) Lymphocytes # (Auto) 0.9 TH/MM3 (1.0-4.8) 0.8 TH/MM3 (1.0-4.8) Random Glucose 127 MG/DL (74-106) Alkaline Phosphatase 119 U/L (45-117) Aspartate Amino Transf (AST/SGOT) 14 U/L (15-37) 12 U/L (15-37) Sodium Level 123 MEQ/L (136-145) 128 MEQ/L (136-145) Chloride Level 89 MEQ/L (98-107) 94 MEQ/L (98-107) Phenytoin (Dilantin) Level 3.6 MCG/ML (10.0-20.0) Carbamazepine (Tegretol) Level 13.6 MCG/ML (4.0-12.0) Urine Turbidity CLOUDY (CLEAR) Urine Leukocyte Esterase SMALL (NEG) Urine Mucus FEW /lpf (OCC) Creatinine 0.40 MG/DL (0.50-1.00) Total Protein 5.7 GM/DL (6.4-8.2) Albumin 3.1 GM/DL (3.4-5.0) Calcium Level 7.9 MG/DL (8.5-10.1) Imaging Last Impressions Neck Magnetic Resonance Angiography 06/21/171630 Signed Impressions: Service Date/Time: May 18:25 - CONCLUSION: Normal examination. Timothy Grady MD Head Magnetic Resonance Angiography 06/21/171630 Signed Impressions: Service Date/Time: May 18:25 - CONCLUSION: Normal examination. Timothy Grady MD Chest X-Ray 06/21/171630 Signed Impressions: Service Date/Time: May 16:39 - CONCLUSION: 1. Mild cardiomegaly. Stable compared to prior dated 11/28/15. Jarrod Perez MD Brain MRI 06/21/171630 Signed Impressions: Service Date/Time: May 18:25 - CONCLUSION: Normal examination. Timothy Grady MD PE at Discharge GENERAL: Elderly white female in no acute distress. HEENT: PERRLA, EOMI. No scleral icterus or conjunctival pallor. No lid lag or facial droop. Mild pain over the left jaw on palpation. CARDIOVASCULAR: Regular rate and rhythm. No obvious murmurs to auscultation. No chest tenderness to palpation. RESPIRATORY: No obvious rhonchi or wheezing. Clear to auscultation. Breath sounds equal bilaterally. GASTROINTESTINAL: Abdomen soft, non-tender, nondistended. BS normal. MUSCULOSKELETAL: Extremities without clubbing, cyanosis, or edema. No obvious deformities. NEUROLOGICAL: Awake, alert and oriented x4. No focal neurologic deficits. Moving both upper and lower extremities spontaneously. Pt update on day of discharge Feels better. Talking on the phone. Appears in nad. Pain is fairly controlled. No n/v/d/c. No new motor deficit.Denies cp, sob, n/v/ d/c. no change in vision. Hospital Course Ataxia: acute onset of gait instability/ataxia x2-3 days, associated intermittent dizziness. Likely secondary to Carbamazepine toxicity. MRI Brain , MRA Head/Neck w/ no acute findings, images reviewed by me. Dr. Leong consulted by ER physician Seen by Dr Diggs appreciate recommendations. Carbamazepine was held. Discussed with Dr Diggs neurology recommends resterting carbamazepine, to recheck Na level this AM and if Na > 130 patient can be discharged on Carbatrol 200 mg BID. Patient to follow up with her neurology doctor as OP. Hyponatremia: Acute on Chronic. Na 123on admission. Improving. Received IVF NS. Likely secondary to Carbamazepine. Discussed with Dr Diggs neurology recommends resterting carbamazepine, to recheck Na level tomorrow AM and id Na > 130 patient can be discharged on Carbatrol 200 mg BID Carbamazepine Toxicity: Elevated Carbamazepine 13.6. Will hold, repeat Carbamazepine level in am. Trigeminal Neuralgia: w/ chronic pain, pt reluctant to discontinue or decrease dose of Carbamazepine due to good results. Will hold for now as above secondary to toxicity. Resume home Dilantin. Analgesics as needed. HTN: Uncontrolled. BP 245/119, HR 73 on arrival, currently BP 160's. Resume home medications, increased crvedilol to 6.25 mg po bid. Stop IVF as Na is 131 at this time. Monitor BP. DVT Prophylaxis: SCD/Teds. Social work for d/c planning as needed. Discussed with the patient, nurse, Dr Diggs neurology. Improved. DC home in stable condition, Na level is 131 at [place], to f/u as OP with PCP and consultants. Pt Condition on Discharge: Stable Discharge Disposition: Disch w/ Home Health Serv Discharge Time: > 30 minutes Discharge Instructions DIET: Follow Instructions for: Heart Healthy Diet Activities you can perform: Regular-No Restrictions Follow up Referrals: PCP Follow-up - 2-3 Days New Medications: Carbamazepine ER 12 HR (Carbatrol ER 12 HR) 200 Mg Cap 200 MG PO Q12HR for trigeminal neuralgia, #60 CAP 0 Refills Continued Medications: Carvedilol (Carvedilol) 6.25 Mg Tab 3.125 MG PO BID, #60 TAB 0 Refills Cholecalciferol (Vitamin D-1000) 1,000 Unit Tab 1000 UNITS PO DAILY for Nutritional Supplement, #1 BOTTLE 0 Refills Levothyroxine (Levothyroxine) 112 Mcg Tab 112 MCG PO DAILY for Thyroid, #30 TAB 0 Refills Losartan (Losartan) 50 Mg Tab 50 MG PO DAILY for Blood Pressure Management, #30 TAB 0 Refills Phenytoin Extended (Dilantin) 100 Mg Cap 100 MG PO HS for Control Seizures, #180 CAP 0 Refills Pravastatin (Pravastatin) 40 Mg Tab 40 MG PO HS for Cholesterol Management, #30 TAB 0 Refills Tolterodine ER (Detrol LA) 4 Mg Cap 4 MG PO DAILY for Urinary Symptom Managemen, #30 CAP 0 Refills Discontinued Medications: [carbatrol sr ] () Lulú Mercado MD Jun 23, 2017 08:12
[2017-06-23] MEDS ORDERED: ENALAPRILAT 2.5 MG/2 ML VIAL IV PUSH PRN (08:15)
[2017-06-23] MEDS: carBAMazepine 200 MG TAB PO SCH (08:50)
[2017-06-23 09:11] LABS: BICARBONATE 27.9 MEQ/L (21.0-32.0); POTASSIUM 4.1 MEQ/L (3.5-5.1)
[2017-06-23] MEDS ORDERED: CARV6.252 PO (09:15)
--- NOTE | 2017-06-23 09:19 | HHI.FF ---
Face to Face Verification Diagnosis: (1) HTN (hypertension) (2) Hypothyroidism (3) Hypertensive urgency (4) Ataxia (5) Hyponatremia (6) Trigeminal neuralgia (7) Disequilibrium (8) Carbamazepine toxicity (9) Broad-based gait Physical Therapy Order: Evaluate and Treat Home Health Nursing Order: Medical education Signs/symptoms of disease process Medication education-adverse effect Nursing assessment with vital signs I have seen patient Liliana Naik on 06/23/17. My clinical findings support the need for the requested home health care services because: Ltd mobility - disease progression I certify that my clinical findings support that this patient is homebound because: Post-op weakness Unsteady gait/balance Lulú Mercado MD Jun 23, 2017 09:19
== END 2017-06-23 13:18 | disposition home or self-care (01) ==
LOC: NEPC 15:43 → NEDA 20:25 → NEPHCDU 22:41
PROVIDERS: ADMIT Hospitalist; ATTEND Hospitalist
DX: R27.0 Ataxia, unspecified (principal); E87.1 Hypo-osmolality and hyponatremia; T42.1X1A Poisoning by iminostilbenes, accidental (unintentional), initial encounter; I10 Essential (primary) hypertension; E03.9 Hypothyroidism, unspecified; E78.5 Hyperlipidemia, unspecified; G50.0 Trigeminal neuralgia; G89.29 Other chronic pain
CPT/HCPCS: 70544; 70548; 70551; 71010; 80048; 80053; 80156; 80185; 81001; 84443; 85025; 85610; 85730; 93005; 96360; 96361; 97161; 99285; A9579; G0378; G8987; G8988; J7030

== ENCOUNTER 2017-10-01 11:37 | Emergency (ER) | payer MEDICARE, OTHER ==
[~2017-10-01] VITALS: Ht 167.6 cm; Wt 72.0 kg
[~2017-10-01 11:37] MED LIST changes: -CARB100C17 PO; +CARB200C2 PO; -CARV12.52 PO; +CARV6.252 PO; -COZA50TA PO; +DETR4CAP PO; +DILA100C PO; -HYDRA25 PO; -LEVO.025 PO; +LEVO112T2 PO; +LOSA50TA PO; -MECL25 PO; -PHEN100 PO; -PRAV40TA PO; +PRAV40TA2 PO; -TOLT4 PO; +VITA1000 PO; -VITA400C70 PO
[2017-10-01 11:44] VITALS: BP 121/59; PULSE 85; RESP 16; TEMP 98.6; O2SAT 96
[2017-10-01] MEDS ORDERED: CARB1TAB48 PO (12:09)
[2017-10-01] MEDS ORDERED: RENAXA PO (12:09)
[2017-10-01] MEDS ORDERED: LIDO1PAD52 TOPICAL (12:09)
--- NOTE | 2017-10-01 12:13 | PD ---
HPI Chief Complaint: Cold / Flu Symptoms Time Seen by Provider: 12:11 Travel History International Travel<30 days: No Contact w/Intl Traveler<30days: No Traveled to known affect area: No History of Present Illness HPI 77-year-old female came to the emergency room with history of cough that's progressively worsening over past 1 week. For past 2 days she has been coughing up thick yellowish to greenish phlegm. He has been running a fever as well. She went to the urgent care and was tested negative for influenza. And is here for the same complain. He is being seen as well. Patient is not a smoker or history of COPD. She is awake and answering questions appropriately. Does appear to be in some distress when she starts to cough. Vital signs of been stable. Patient says she has bronchitis every time around this year. Her primary care had done an x-ray of her chest on Sunday she was told today that the x-ray was negative. While I was taking the history patient started to cough violently between the conversation and then eventually brought up thick yellowish mucus on the tissue. [facility] Past Medical History Narrative Medical List of her past medical, surgical, social and family history is reviewed from the nursing note. Arthritis: Yes Asthma: No Blood Disorders: No Anxiety: No Depression: No Heart Rhythm Problems: No Cancer: No Cardiovascular Problems: Yes (HTN) High Cholesterol: Yes Chemotherapy: No Chest Pain: Yes (amlodopine put pt into a mi) Congestive Heart Failure: No COPD: No Diabetes: No Diminished Hearing: No Endocrine: Yes Gastrointestinal Disorders: Yes (constipation) Genitourinary: No Hypertension: Yes Immune Disorder: Yes (graves disease) Implanted Vascular Access Dvce: Yes Musculoskeletal: Yes (right foot sx/ right knee sx/ left knee) Neurologic: Yes (trigeminal neuralgia) Psychiatric: No Reproductive: No Respiratory: No Immunizations Current: Yes Radiation Therapy: No Sleep Apnea: No Thyroid Disease: Yes (graves disease -- hyperthyroidism ) Influenza Vaccination: Yes ?: Not Menopausal: Yes Past Surgical History Abdominal Surgery: Yes (cyst removed from abd area) Body Medical Devices: mesh in cranium and and caps on teeth Genitourinary Surgery: Yes (BLADDER TACKING) Hysterectomy: Yes Neurologic Surgery: Yes (CRANIAL DECOMPRESSION FOR TRIGEMINAL NEURALGIA) Tonsillectomy: Yes Tympanostomy Tube: Yes Other Surgery: Yes (PINS PLACED May, RT FOOT 2ND,3RD DIGIT- hammer toes) Family History Family Hypercholesterolemia: Yes Social History Alcohol Use: No Tobacco Use: No Substance Use: No Allergies-Medications (Allergen,Severity, Reaction): Coded Allergies: amlodipine (Verified Allergy, Severe, 10/01/17) CAUSED NUMB ARM/HAND AND HTN X SEV DAYS. (SAID HAD AN NM) penicillin G (Verified Allergy, Mild, 10/01/17) Uncoded Allergies: GENERAL ANESTHESIA (Allergy, Mild, 04/04/15) . NARCOTCS (Adverse Reaction, Intermediate, severe nausea, 04/04/15) Comments List of her allergies reviewed from the nursing note. Reported Meds & Prescriptions Reported Meds & Active Scripts Active Zithromax Z-Dayron (Azithromycin) 250 Mg Dspk 250 Mg PO DIRECTED 500 MG (2 tabs) day 1, then 1 tab days 2-5. Carvedilol 6.25 Mg Tab 6.26 Mg PO BID Carbatrol ER 12 HR (Carbamazepine) 200 Mg Cap 200 Mg PO Q12HR Reported Lidocaine Patch 12 HR (Lidocaine) 5 % Patch 1 Patch TOPICAL DAILY Remove patch after 12 hours [Renaxa] 400 Mg PO DAILY Carbamazepine ER 12 HR (Carbamazepine) 100 Mg Tab 100 Mg PO Q12HR Vitamin D-1000 (Cholecalciferol) 1,000 Unit Tab 1,000 Units PO DAILY Dilantin (Phenytoin Extended) 100 Mg Cap 100 Mg PO HS Detrol LA (Tolterodine Tartrate) 4 Mg Cap 4 Mg PO DAILY Levothyroxine (Levothyroxine Sodium) 112 Mcg Tab 125 Mcg PO DAILY Pravastatin 40 Mg Tab 40 Mg PO HS Losartan (Losartan Potassium) 50 Mg Tab 50 Mg PO DAILY Narrative Medication List of her home medications reviewed from the nursing note. Review of Systems Except as stated in HPI: all other systems reviewed are Neg General / Constitutional: Positive: Fever, Chills Respiratory: Positive: Cough Physical Exam Narrative GENERAL: Awake, alert, mild distress SKIN: Focused skin assessment warm/dry. HEAD: Atraumatic. Normocephalic. EYES: Pupils equal and round. No scleral icterus. No injection or drainage. ENT: No nasal bleeding or discharge. Mucous membranes pink and moist. NECK: Trachea midline. No JVD. CARDIOVASCULAR: Regular rate and rhythm. No murmur appreciated. RESPIRATORY: No accessory muscle use. Clear to auscultation. Breath sounds equal bilaterally. GASTROINTESTINAL: Abdomen soft, non-tender, nondistended. Hepatic and splenic margins not palpable. MUSCULOSKELETAL: No obvious deformities. No clubbing. No cyanosis. No edema. NEUROLOGICAL: Awake and alert. No obvious cranial nerve deficits. Motor grossly within normal limits. Normal speech. PSYCHIATRIC: Appropriate mood and affect; insight and judgment normal. Data Data Last Documented VS Orders Orders Chest, Pa & Lat (10/01/17 ) Ed Discharge Order (10/01/17 13:25) [facility] Medical Decision Making Medical Screen Exam Complete: Yes Emergency Medical Condition: Yes Medical Record Reviewed: Yes Differential Diagnosis Bronchitis, pneumonia Narrative Course 1:29 PM chest x-ray and here is negative as well. Patient will be discharged home on a Z-Dayron. Procedures EKG Prior to Arrival: No Diagnosis Primary Impression: Bronchitis Referrals: Primary Care Physician 3 days Additional Instructions: Return to the ER if condition worsens or any other new concerns. Otherwise follow-up with your primary care next couple days. Take the medication as per the prescription direction. Med/Other Pt SpecificInfo: Prescription(s) given Scripts Azithromycin (Zithromax Z-Dayron) 250 Mg Dspk 250 MG PO DIRECTED for Infection, #1 DSPK 0 Refills 500 MG (2 tabs) day 1, then 1 tab days 2-5. Prov: Nydia Moore MD 10/01/17 Disposition: 01 DISCHARGE HOME Condition: Stable Nydia Moore MD Oct 01, 2017 12:13
--- NOTE | 2017-10-01 13:01 | RADRPT ---
EXAM DATE/TIME: 10/01/2017 12:31 [place] COMPARISON: No previous studies available for comparison. INDICATIONS : Cough MEDICAL HISTORY : None. SURGICAL HISTORY : None. ENCOUNTER: Initial ACUITY: 1 week PAIN SCORE: 0/10 LOCATION: Bilateral chest FINDINGS: The lungs are clear. The heart is minimally enlarged. The pulmonary vascularity is normal. There is n o evidence for infiltrate or failure. Mild degenerative changes thoracic spine. CONCLUSION: Compensated cardiomegaly otherwise negative River Perez MD FACR on October 01, 2017 at 12:59 Board Certified Radiologist. This report was verified electronically.
[2017-10-01] MEDS ORDERED: ZITHTAB PO (13:26)
[2017-10-01 13:34] VITALS: BP 140/78
== END 2017-10-01 13:38 | disposition home or self-care (01) ==
LOC: PHED 11:37
DX: J40 Bronchitis, not specified as acute or chronic (principal); I10 Essential (primary) hypertension; E78.00 Pure hypercholesterolemia, unspecified; E05.00 Thyrotoxicosis with diffuse goiter without thyrotoxic crisis or storm; M19.90 Unspecified osteoarthritis, unspecified site
CPT/HCPCS: 71046; 99283